=== PATIENT | female | born 1990 | race African-American/Black ===

== ENCOUNTER 2020-04-09 17:13 | Emergency (ER) | payer MEDICAID ==
[~2020-04-09] VITALS: Ht 167.6 cm; Wt 69.0 kg
[2020-04-09] MEDS ORDERED: KETOROLAC 30MG/ML VIAL IV STA (18:33)
[2020-04-09] MEDS ORDERED: SODIUM CHLORIDE 0.9% 1,000 ML IV ONE ×2 (18:33→20:56)
[2020-04-09] MEDS ORDERED: ONDANSETRON HCL 4MG/2ML INJ IV STA (18:33)
[2020-04-09 19:07] LABS: HEMATOCRIT. 39.8 % (36.0-48.0); HEMOGLOBIN. 13.5 g/dL (12.0-16.0); MEAN CORPUSCULAR HEMOGLOBIN 31.1 pg (28.0-32.0); MEAN PLATELET VOLUME 7.8 fl (7.4-10.4); PLATELET 273 x1000/uL (130-400); RED BLOOD CELL COUNT 4.33 mill/uL (4.2-5.4); RED CELL DISTRIBUTION WIDTH 12.9 % (11.6-14.6)
[2020-04-09 19:14] LABS: CHLORIDE 108 mEq/L (98-107)
[2020-04-09 19:26] LABS: HCG SCREEN NEGATIVE
[2020-04-09 19:29] LABS: PLATELET ESTIMATE NORMAL
[2020-04-09] MEDS ORDERED: KETOROLAC 15MG/ML VIAL IV ONE (20:15)
[2020-04-09 23:43] VITALS: BP 120/74
[2020-04-09 23:44] LABS: CLARITY URINE CLEAR (CLEAR); COLOR URINE YELLOW (YELLOW); KETONES URINE TRACE (NEGATIVE); LEUKOCYTE ESTERASE URINE NEGATIVE (NEGATIVE); NITRITE URINE NEGATIVE (NEGATIVE); OCCULT BLOOD URINE NEGATIVE (NEGATIVE); PH URINE 5.5 (4.5-8.0); PROTEIN URINE NEGATIVE (NEGATIVE); SPECIFIC GRAVITY URINE 1.018 (1.005-1.030); UROBILINOGEN URINE 0.2 E.U./dL (0.2-1.0)
[2020-04-10 00:10] LABS: *COCAINE SCREEN URINE NEGATIVE (NEGATIVE); METHADONE URINE SCREEN NEGATIVE (NEGATIVE); OPIATES URINE SCREEN NEGATIVE (NEGATIVE); PHENCYCLIDINE URINE SCREEN NEGATIVE (NEGATIVE)
[2020-04-10 00:11] LABS: *AMPHETAMINES SCREEN URINE NEGATIVE (NEGATIVE); *BARBITURATES SCREEN URINE NEGATIVE (NEGATIVE); *BENZODIAZEPINES SCREEN URINE NEGATIVE (NEGATIVE)
[2020-04-10 00:22] LABS: CANNABINOID URINE SCREEN PRESUMTIVE POSITIVE (NEGATIVE)
== END 2020-04-09 23:45 | disposition home or self-care (01) ==
LOC: ER 17:13
DX: R10.9 Unspecified abdominal pain (principal); F12.10 Cannabis abuse, uncomplicated; J45.909 Unspecified asthma, uncomplicated
CPT/HCPCS: 36415; 76830; 76856; 80053; 80305; 81003; 83690; 84703; 85025; 85610; 96361; 96374; 96375; 96376; 99284; J1885; J2405; J7030